=== PATIENT | male | born 1995 | race Hispanic/Latino ===

== ENCOUNTER 2021-11-30 14:54 | Emergency (ER) | payer SELFPAY | END 2021-11-30 16:38 | disposition home or self-care (01) | LOC: CSHERS 14:54 | DX: T16.2XXA Foreign body in left ear, initial encounter (principal); H65.91 Unspecified nonsuppurative otitis media, right ear; H60.91 Unspecified otitis externa, right ear | CPT/HCPCS: 99282 ==